=== PATIENT | male | born 1995 ===

== ENCOUNTER 2021-07-10 15:10 | Emergency (ER) | payer BC, OTHER ==
[2021-07-10] MEDS ORDERED: Ketorolac 60 MG/2 ML SDV IM ONE (17:56)
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
== END 2021-07-10 20:44 | disposition home or self-care (01) ==
LOC: MW.ED 15:10
DX: S00.83XA Contusion of other part of head, initial encounter (principal); S50.10XA Contusion of unspecified forearm, initial encounter; I10 Essential (primary) hypertension; Z72.0 Tobacco use; Y04.2XXA Assault by strike against or bumped into by another person, initial encounter
CPT/HCPCS: 70486; 96372; 99283; J1885